=== PATIENT | male | born 1990 | race Caucasian/White ===

== ENCOUNTER 2017-04-16 21:35 | Emergency (ER) | payer MEDICAID ==
[2017-04-16 21:36] VITALS: BP 174/113; PULSE 76; RESP 18; TEMP 99; O2SAT 99
--- NOTE | 2017-04-16 22:11 | PD ---
HPI Chief Complaint: Psychiatric Symptoms Time Seen by Provider: 22:11 Travel History International Travel<30 days: No Contact w/Intl Traveler<30days: No Traveled to known affect area: No History of Present Illness HPI 26-year-old male came to the emergency room since he is having issues in his relationship because of his inability to communicate. He says he is here to see somebody and talk to them about his problems. He is not suicidal or homicidal. He is not hearing any voices. Denies doing any drugs or alcohol in the past 3-4 months. He has not seeked any outside help yet. [facility] Past Medical History Narrative Medical List of his past medical, surgical, social and family history is reviewed from the nursing note. Social History Tobacco Use: Yes Allergies-Medications (Allergen,Severity, Reaction): Coded Allergies: No Known Allergies (Verified Allergy, Unknown, 04/16/17) Comments No known drug allergies. Narrative Medication Awaiting for the nurse to do the medical reconciliation. Review of Systems Except as stated in HPI: all other systems reviewed are Neg Physical Exam Narrative GENERAL: Awake, alert, no obvious distress SKIN: Focused skin assessment warm/dry. HEAD: Atraumatic. Normocephalic. EYES: Pupils equal and round. No scleral icterus. No injection or drainage. ENT: No nasal bleeding or discharge. Mucous membranes pink and moist. NECK: Trachea midline. No JVD. CARDIOVASCULAR: Regular rate and rhythm. No murmur appreciated. RESPIRATORY: No accessory muscle use. Clear to auscultation. Breath sounds equal bilaterally. GASTROINTESTINAL: Abdomen soft, non-tender, nondistended. Hepatic and splenic margins not palpable. MUSCULOSKELETAL: No obvious deformities. No clubbing. No cyanosis. No edema. NEUROLOGICAL: Awake and alert. No obvious cranial nerve deficits. Motor grossly within normal limits. Normal speech. PSYCHIATRIC: Appropriate mood and affect; insight and judgment normal. Data Data Last Documented VS [facility] Medical Decision Making Medical Screen Exam Complete: Yes Emergency Medical Condition: Yes Medical Record Reviewed: Yes Differential Diagnosis Adjustment disorder, anxiety, depression Narrative Course 10:28 PM I discussed with the patient that he will have to wait till the morning or may be that afternoon to see the psych nurse practitioner since this case would not become an urgent or emergent given his no suicidal or homicidal ideations. Patient didn't want to wait till then. Got upset that there was no help available here which is not exactly what I told him. However if he wants to leave I'm comfortable discharging him home. He needs to start calling psych counselor to get an appointment as an outpatient. Procedures EKG Prior to Arrival: No Diagnosis Primary Impression: Adjustment disorder Qualified Codes: F43.20 - Adjustment disorder, unspecified Referrals: Primary Care Physician Additional Instructions: Please try to call a psychiatric counselor outpatient appointment. Return to the ER if you are suicidal or need immediate medical help. Med/Other Pt SpecificInfo: No Change to Meds Disposition: 01 DISCHARGE HOME Condition: Shanique Britt MD Apr 16, 2017 22:11
== END 2017-04-16 22:41 | disposition home or self-care (01) ==
LOC: NEPD 21:35
DX: F43.20 Adjustment disorder, unspecified (principal); Z72.0 Tobacco use
CPT/HCPCS: 99282